=== PATIENT | male | born 1935 | race Caucasian/White ===

== ENCOUNTER 2022-09-28 09:53 | Emergency (ER) | payer MEDICARE, SELFPAY ==
--- NOTE | ~2022-09-28 | CT_ITS ---
EXAMINATION: CT hand LT wo con DATE: 09/28/2022 11:49 INDICATION: Left hand injury and pain and swelling. TECHNIQUE: Computed tomography (CT) of the left hand was performed without intravenous contrast. Auto mated exposure control and iterative reconstruction technique were employed. The dose-length product was 436.85 mGy-cm. COMPARISON: Left hand radiographs 09/28/2022 FINDINGS: Bone alignment is normal. No fracture. There is severe osteoarthritis of radioscaphoid and radiolunate joints. 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 There is mild osteoarthritis of triscaphe joint and severe osteoarthritis of first carpo metacarpal joint. There is degenerative cystic change in triquetrum. There is moderate osteoarthritis of first and second metacarpophalangeal joints and mild osteoarthritis of first interphalangeal join t. There is a 2.3 cm mass dorsal to the fourth and fifth carpometacarpal joints, likely a hematoma. IMPRESSION: 1. Polyarticular osteoarthritis. 2. 2.3 cm mass dorsal to fourth and fifth carpometacarpal joints, likely a hematoma. Reviewed, dictated and finalized at location A. NESS MGR IMPRESSION: 1. Polyarticular osteoarthritis. 2. 2.3 cm mass dorsal to fourth and fifth carpometacarpal joints, likely a jany samantha.
--- NOTE | ~2022-09-28 | XR_ITS ---
XR hand LT min 3V DATE: 09/28/2022 10:25 INDICATION: Fall yesterday. Posterior hand laceration. Pain, swelling. TECHNIQUE: 3 views of left hand COMPARISON: None FINDINGS: There is osteopenia. Dorsal soft tissue swelling of the wrist and hand. There are severe osteophytic change at the radiocarpal joint with prominent degenerative cystic holder e at the distal radius, prominent radiocarpal joint space narrowing. There is severe osteoarthritis at the first carpometacarpal joint with prominent hypertrophic spurrin g. There is osteoarthritic change at the first through third metacarpophalangeal joints. No fracture or dislocation, periosteal reaction or bone destruction is evident. IMPRESSION: Polyarticular osteoarthritis, particularly severe at the first carpometacarpal and radioc arpal joints Dorsal soft tissue swelling of the wrist and hand Reviewed, dictated and finalized at location A. SPRAYER IMPRESSION: Polyarticular osteoarthritis, particularly severe at the first carp ometacarpal and radiocarpal joints Dorsal soft tissue swelling of the wrist and hand
[2022-09-28 10:02] VITALS: BP 112/69; PULSE 88; RESP 18; TEMP 36.2; O2SAT 98
--- NOTE | 2022-09-28 11:28 | ED.UPPEXIN ---
HPI - Extremity Injury (Upper) General Chief Complaint: Extremity Injury, Upper Stated Complaint: hand injury r/t fall yesterday Time Seen by Provider: 09/28/22 11:14 Source: patient and family Mode of arrival: ambulatory Limitations: no limitations History of Present Illness HPI narrative: This is an 87-year-old male that presents to the emergency department for left hand injury sustained yesterday. Reports he was going to walk up the steps and lost his balance and fell backwards. He caught himself with his left hand. Reports bruising and swelling to the area. He was seen in urgent care yesterday and had x-rays that he was told were inconclusive. He was prompted to be seen in the ER for a CT scan of his hand. He did not hit his head or lose consciousness. He denies any other focal areas of pain. Denies decreased range of motion or numbness. Related Data Home Medications Medication Instructions Recorded Confirmed apixaban 5 mg tablet (Eliquis) 5 mg PO BID 11/17/21 03/24/22 aspirin 81 mg capsule 81 mg PO DAILY 11/17/21 03/24/22 atorvastatin 40 mg tablet 40 mg PO DAILY 11/17/21 03/24/22 digoxin 125 mcg (0.125 mg) tablet 125 mcg PO DAILY 11/17/21 03/24/22 (Digox) famotidine 20 mg tablet 20 mg PO DAILY 11/17/21 03/24/22 furosemide 80 mg tablet 80 mg PO QAM 11/17/21 03/24/22 losartan 25 mg tablet 25 mg PO DAILY 11/17/21 03/24/22 metoprolol succinate 50 mg 50 mg PO DAILY 11/17/21 03/24/22 tablet,extended release 24 hr spironolactone 25 mg tablet 25 mg PO DAILY 11/17/21 03/24/22 tamsulosin 0.4 mg capsule 0.4 mg PO DAILY 11/17/21 03/24/22 Allergies Allergy/AdvReac Type Severity Reaction Status Date / Time No Known Allergies Allergy Verified 09/28/22 11:14 Review of Systems Review of Systems: CONSTITUTIONAL: Denies fever SKIN: Denies rash MUSCULOSKELETAL: Reports joint pain and myalgia. Denies back pain NEUROLOGIC: Denies numbness, or weakness. All systems reviewed & are unremarkable except as noted in HPI and below PMFSH Past Medical History Medical History (Updated 09/28/22 @ 12:41 by Manuela Ríos PA-C) Anxiety Arthritis Degenerative arthritis of knee, bilateral Heart attack History of gastroesophageal reflux (GERD) History of hyperlipidemia History of hypertension Melanoma Surgical History Surgical History H/O hernia repair H/O melanoma excision H/O repair of rotator cuff History of appendectomy History of heart surgery History of right hip replacement 2014 anterior approach Family History Family History Father Diabetes mellitus Cerebrovascular accident Mother Liver problem Social History Social History Smoking status: Never smoker Alcohol intake: never Substance use: never Living arrangements: alone Occupation/Education: retired Exam Narrative: GENERAL: Well-appearing, well-nourished, and in no acute distress. HEAD: Normocephalic, atraumatic. EYES: PERRLA and EOMI. ENT: Nares clear, no rhinorrhea or epistaxis. Mucous membranes moist. Oropharynx without tonsillar hypertrophy exudate or other lesions. Bilateral TMs pearly montes non-bulging NECK: Supple. No adenopathy or masses. No midline cervical spine tenderness CHEST: Clear to auscultation. No respiratory distress. No wheezes rales or rhonchi HEART: Regular rate and rhythm. No murmur heard. Normal peripheral pulses. BACK: No midline thoracic or lumbar spine tenderness EXTREMITIES: Normal range of motion. No obvious deformity. Swelling and bruising noted with superficial skin tear to the left hand dorsal surface. Normal radial pulse. Normal sensation SKIN: Warm, dry, no rash. NEURO: No focal deficits. Alert and oriented x3. Cranial nerves II through XII grossly intact PSYCH: Normal mood and affect Course Course Emergency Course: Patient and family update
[2022-09-28 13:32] VITALS: BP 127/82; PULSE 78; RESP 15; O2SAT 99
== END 2022-09-28 13:34 | disposition home or self-care (01) ==
PROVIDERS: Emergency Provider Physician Assistant; PCP Internal Medicine
DX: S60.222A Contusion of left hand, initial encounter (principal); S61.412A Laceration without foreign body of left hand, initial encounter; F41.9 Anxiety disorder, unspecified; M17.0 Bilateral primary osteoarthritis of knee; K21.9 Gastro-esophageal reflux disease without esophagitis; E78.5 Hyperlipidemia, unspecified; I10 Essential (primary) hypertension; Z85.820 Personal history of malignant melanoma of skin; Z96.641 Presence of right artificial hip joint; Z79.82 Long term (current) use of aspirin; Z79.01 Long term (current) use of anticoagulants; M18.9 Osteoarthritis of first carpometacarpal joint, unspecified; M19.042 Primary osteoarthritis, left hand; M19.032 Primary osteoarthritis, left wrist; W10.9XXA Fall (on) (from) unspecified stairs and steps, initial encounter
CPT/HCPCS: 73130; 73200; 99284